=== PATIENT | female | born 1935 | race Caucasian/White ===

== ENCOUNTER 2020-03-20 12:44 | Emergency (ER) | payer BC, MEDICARE ==
[~2020-03-20] VITALS: Ht 165.1 cm; Wt 81.4 kg
[~2020-03-20 12:44] MED LIST: AMIT-189 PO; LEVO25TA2 PO; LIDOcaine 1% W/epiNEPHrine 1:200,000 10ml vial ONE; METF500T PO; POTA10CA44 PO; ROSU10TA2 PO
[2020-03-20] MEDS ORDERED: ibuprofen tablet 400 MG TABLET PO ONE (13:50)
[2020-03-20] MEDS ORDERED: bacitracin 15gm ointment TP ONE (14:25)
[2020-03-20 14:51] VITALS: BP 146/75
== END 2020-03-20 14:54 | disposition home or self-care (01) ==
LOC: ER 12:44
DX: S61.412A Laceration without foreign body of left hand, initial encounter (principal); S00.03XA Contusion of scalp, initial encounter; G43.909 Migraine, unspecified, not intractable, without status migrainosus; E11.9 Type 2 diabetes mellitus without complications; Z88.0 Allergy status to penicillin; Z87.440 Personal history of urinary (tract) infections; Z88.2 Allergy status to sulfonamides; Z88.5 Allergy status to narcotic agent; Z79.899 Other long term (current) drug therapy; W18.39XA Other fall on same level, initial encounter; Y93.01 Activity, walking, marching and hiking; Y92.89 Other specified places as the place of occurrence of the external cause; Y99.8 Other external cause status
CPT/HCPCS: 12002; 70450; 70486; 72125; 93005; 99285

== ENCOUNTER 2021-02-13 16:22 | Emergency (ER) | payer MEDICARE ==
[~2021-02-13] VITALS: Ht 167.6 cm; Wt 76.8 kg
[~2021-02-13 16:22] MED LIST changes: -LIDOcaine 1% W/epiNEPHrine 1:200,000 10ml vial ONE
[2021-02-13] MEDS ORDERED: bacitracin 15gm ointment TP ONE ×2 (17:15→20:10)
[2021-02-13] MEDS ORDERED: aspirin 81mg tab.chew PO ONE (17:15)
[2021-02-13] MEDS ORDERED: TETanus/Pertussis (Acell)/Diphther VAC/PF (Tdap-Adult) 0.5ml syringe IMVAC ONE (17:15)
[2021-02-13 18:12] LABS: BASOPHILS % (AUTO) 0.4 % (0-1); EOSINOPHILS # (AUTO) 0.3 X10'3 (0-0.9); EOSINOPHILS % (AUTO) 2.7 % (0-6); HEMATOCRIT 42.3 % (35.0-45.0); HEMOGLOBIN 14.2 g/dl (12.0-16.0); LYMPHOCYTES # (AUTO) 2.1 X10'3 (1.1-4.8); LYMPHOCYTES % (AUTO) 19.7 % (21-51); MEAN CORPUSCULAR HEMOGLOBIN 29.8 PG (27.0-31.0); MEAN CORPUSCULAR HGB CONC 33.6 g/dL (33.0-36.5); MEAN CORPUSCULAR VOLUME 88.7 FL (78-98); MEAN PLATELET VOLUME 8.2 FL (7.4-10.4); MONOCYTES # (AUTO) 1.1 X10'3 (0-0.9); MONOCYTES % (AUTO) 10.2 % (2-12); NEUTROPHILS # (AUTO) 7.3 X10'3 (1.8-7.7); PLATELET COUNT 352 X10'3 (140-440); RED BLOOD COUNT 4.76 X10'6 (4.20-5.60); WHITE BLOOD COUNT 10.8 X10'3 (4.5-11.0)
[2021-02-13 18:31] LABS: ALANINE AMINOTRANSFERASE 27 U/L (12-78); ALBUMIN 3.2 G/DL (3.4-5.0); ALBUMIN/GLOBULIN RATIO 0.9 (1.1-1.5); ALKALINE PHOSPHATASE 86 IU/L (46-116); ANION GAP 10 (8-16); ASPARTATE AMINO TRANSFERASE 23 U/L (10-37); BILIRUBIN,TOTAL 0.3 MG/DL (0.1-1.0); BLOOD UREA NITROGEN 13 MG/DL (7-18); BUN/CREATININE RATIO 11.8 (6.6-38.0); CALCIUM 8.4 MG/DL (8.5-10.1); CHLORIDE 105 MMOL/L (99-107); GLUCOSE 145 MG/DL (70-104); POTASSIUM 3.4 MMOL/L (3.5-5.1); SODIUM 141 MMOL/L (135-145); TOTAL PROTEIN 6.9 G/DL (6.4-8.2); eGFR 47 ML/MIN
[2021-02-13] MEDS ORDERED: LIDOcaine 1% W/epiNEPHrine 1:200,000 10ml vial IJ ONE (20:10)
[2021-02-13] MEDS ORDERED: potassium Cl 20 mEq SR tablet PO ONE (21:20)
[2021-02-13] MEDS ORDERED: CEPH250T PO (21:26)
--- NOTE | 2021-02-13 21:51 | NUR ---
per MELIDA Schilling, no urine needed at this time, Pt discharge
[2021-02-13 21:52] VITALS: BP 148/73
== END 2021-02-13 21:56 | disposition home or self-care (01) ==
LOC: ER 16:23
DX: S22.030A Wedge compression fracture of third thoracic vertebra, initial encounter for closed fracture (principal); S61.216A Laceration without foreign body of right little finger without damage to nail, initial encounter; F07.81 Postconcussional syndrome; G43.909 Migraine, unspecified, not intractable, without status migrainosus; E11.9 Type 2 diabetes mellitus without complications; Z87.440 Personal history of urinary (tract) infections; Z88.0 Allergy status to penicillin; Z88.2 Allergy status to sulfonamides; Z88.5 Allergy status to narcotic agent; Z79.2 Long term (current) use of antibiotics; Z79.899 Other long term (current) drug therapy; W19.XXXA Unspecified fall, initial encounter; Y93.89 Activity, other specified; Y92.89 Other specified places as the place of occurrence of the external cause; Y99.8 Other external cause status
CPT/HCPCS: 12002; 36415; 70450; 71045; 72125; 80053; 83735; 83880; 84443; 84484; 85025; 90715; 93005; 99285

== ENCOUNTER 2022-07-30 15:06 | Inpatient (IN) | payer MEDICARE ==
[~2022-07-30] VITALS: Ht 167.6 cm; Wt 75.0 kg
[~2022-07-30 15:06] MED LIST changes: -AMIT-189 PO; +AMIT50TA15 PO; -POTA10CA44 PO; +POTA10CA45 PO
[2022-07-30] MEDS ORDERED: proCHLORperazine 10 MG/2 ml inj IV ONE (15:45)
[2022-07-30] MEDS ORDERED: famotidine/PF 10 mg/ml inj IV ONE (15:45)
[2022-07-30 16:16] LABS: CLARITY,URINE CLOUDY (Clear); COLOR,URINE STRAW (Yellow); GLUCOSE, URINE NEGATIVE (Neg); KETONES,URINE TRACE mg/dl (Neg); LEUKOCYTE ESTERASE ,URINE NEGATIVE (Neg); NITRITES, URINE NEGATIVE (Neg); OCCULT BLOOD,URINE NEGATIVE (Neg); PROTEIN,URINE NEGATIVE (Neg); UROBILINOGEN,URINE 0.2 E.U/dL (0.2-1.0)
[2022-07-30 16:16] LABS: BASOPHILS % (AUTO) 0.4 % (0-1); EOSINOPHILS # (AUTO) 0.3 X10'3 (0-0.9); EOSINOPHILS % (AUTO) 2.4 % (0-6); HEMATOCRIT 40.9 % (35.0-45.0); HEMOGLOBIN 13.6 g/dl (12.0-16.0); LYMPHOCYTES # (AUTO) 1.2 X10'3 (1.1-4.8); LYMPHOCYTES % (AUTO) 9.6 % (21-51); MEAN CORPUSCULAR HEMOGLOBIN 29.2 PG (27.0-31.0); MEAN CORPUSCULAR HGB CONC 33.2 g/dL (33.0-36.5); MEAN PLATELET VOLUME 8.1 FL (7.4-10.4); MONOCYTES # (AUTO) 0.9 X10'3 (0-0.9); MONOCYTES % (AUTO) 6.8 % (2-12); NEUTROPHILS # (AUTO) 10.5 X10'3 (1.8-7.7); NEUTROPHILS % (AUTO) 80.8 % (42-75); PLATELET COUNT 231 X10'3 (140-440); RED BLOOD COUNT 4.64 X10'6 (4.20-5.60); RED CELL DISTRIBUTION WIDTH 13.3 % (11.5-14.5); WHITE BLOOD COUNT 12.9 X10'3 (4.5-11.0)
[2022-07-30 16:17] LABS: UA COLLECTION TYPE CLN CATCH MIDSTREAM
[2022-07-30] MEDS ORDERED: LIDOcaine 2% 10ml TOPICAL JELLY (Urojet) TP ONE (16:25)
[2022-07-30 16:26] LABS: ALANINE AMINOTRANSFERASE 21 U/L (12-78); ALBUMIN 3.2 G/DL (3.4-5.0); ALKALINE PHOSPHATASE 69 IU/L (46-116); ANION GAP 6 (8-16); ASPARTATE AMINO TRANSFERASE 31 U/L (10-37); BILIRUBIN,TOTAL 0.6 MG/DL (0.1-1.0); BLOOD UREA NITROGEN 11 MG/DL (7-18); BUN/CREATININE RATIO 17.7 (6.6-38.0); CALCIUM 8.8 MG/DL (8.5-10.1); CHLORIDE 100 MMOL/L (99-107); CREATININE 0.62 MG/DL (0.40-0.90); GLUCOSE 157 MG/DL (70-104); POTASSIUM 3.3 MMOL/L (3.5-5.1); SODIUM 135 MMOL/L (135-145); TOTAL CARBON DIOXIDE 28.8 MMOL/L (24-32); TOTAL PROTEIN 6.4 G/DL (6.4-8.2); eGFR > 90 ML/MIN
[2022-07-30 16:28] LABS: AMORPHOUS PHOSPHATES 3+; MUCUS STRANDS NONE SEEN /LPF (Neg); RBC,URINE 0-2 /HPF (0-2); SQUAMOUS EPITHELIAL CELL,UR FEW /LPF (FEW); TRANSITIONAL EPI CELLS,URINE FEW /HPF; WBC,URINE 0-4 /HPF (0-4)
[2022-07-30 16:29] LABS: BACTERIA,URINE 1+ /HPF (Neg)
[2022-07-30] MEDS ORDERED: magnesium 4gm in 100ml NS 100 ML IV PRN (17:35)
[2022-07-30] MEDS ORDERED: magnesium Cl slow-release 64mg tablet PO PRN (17:35)
[2022-07-30] MEDS: normal saline 1000ml 1,000 ML IV SCH (17:35)
[2022-07-30] MEDS ORDERED: potassium Cl 20 mEq SR tablet PO PRN (17:35)
[2022-07-30] MEDS ORDERED: potassium Cl 40MEQ/1/2NS 520ml 520 ML IV PRN (17:35)
[2022-07-30] MEDS ORDERED: ondansetron/PF 4mg/2ml inj IV PRN (17:35)
[2022-07-30] MEDS ORDERED: morphine 2 MG/ML inj. syringe IV PRN (17:35)
[2022-07-30] MEDS ORDERED: acetaminophen 325mg tablet PO PRN (17:35)
[2022-07-30] MEDS: K and/or MAG REPLACEMENT MC SCH (19:07)
[2022-07-30] MEDS: potassium Cl 20 mEq SR tablet PO PRN (19:14)
[2022-07-30 22:00] VITALS: BP 143/77
[2022-07-30] MEDS ORDERED: SOTA80TA73 PO (22:25)
[2022-07-31] VITALS (19 sets, daily range): BP systolic 101–164; BP diastolic 46–77
[2022-07-31] MEDS ORDERED: fentaNYL 12 MCG/hour patch.TD72 TD SCH (00:05)
[2022-07-31] MEDS ORDERED: acetaminophen 1,000mg/100ml IV 100 ML IV ONE (00:05)
[2022-07-31] MEDS: potassium Cl 20 mEq SR tablet PO PRN (00:22)
[2022-07-31] MEDS: normal saline 1000ml 1,000 ML IV SCH ×2 (06:38→21:15)
[2022-07-31 06:54] LABS: BASOPHILS % (AUTO) 0.3 % (0-1); EOSINOPHILS # (AUTO) 0.2 X10'3 (0-0.9); EOSINOPHILS % (AUTO) 2.3 % (0-6); HEMATOCRIT 39.9 % (35.0-45.0); HEMOGLOBIN 13.6 g/dl (12.0-16.0); LYMPHOCYTES # (AUTO) 1.7 X10'3 (1.1-4.8); LYMPHOCYTES % (AUTO) 16.7 % (21-51); MEAN CORPUSCULAR VOLUME 88.4 FL (78-98); MEAN PLATELET VOLUME 7.9 FL (7.4-10.4); MONOCYTES % (AUTO) 9.8 % (2-12); NEUTROPHILS # (AUTO) 7.2 X10'3 (1.8-7.7); NEUTROPHILS % (AUTO) 70.9 % (42-75); PLATELET COUNT 203 X10'3 (140-440); RED BLOOD COUNT 4.51 X10'6 (4.20-5.60); RED CELL DISTRIBUTION WIDTH 13.2 % (11.5-14.5); WHITE BLOOD COUNT 10.2 X10'3 (4.5-11.0)
[2022-07-31 07:32] LABS: HEMOGLOBIN A1C 6.1 % (4.5-6.2)
[2022-07-31 07:41] LABS: ALANINE AMINOTRANSFERASE 20 U/L (12-78); ALBUMIN 2.9 G/DL (3.4-5.0); ALKALINE PHOSPHATASE 62 IU/L (46-116); ANION GAP 5 (8-16); ASPARTATE AMINO TRANSFERASE 32 U/L (10-37); BILIRUBIN,TOTAL 0.9 MG/DL (0.1-1.0); BLOOD UREA NITROGEN 9 MG/DL (7-18); CALCIUM 8.4 MG/DL (8.5-10.1); CHLORIDE 99 MMOL/L (99-107); CREATININE 0.69 MG/DL (0.40-0.90); GLUCOSE 125 MG/DL (70-104); MAGNESIUM 1.7 MG/DL (1.5-2.4); POTASSIUM 4.2 MMOL/L (3.5-5.1); SODIUM 134 MMOL/L (135-145); TOTAL CARBON DIOXIDE 29.6 MMOL/L (24-32); TOTAL PROTEIN 5.9 G/DL (6.4-8.2); eGFR 81 ML/MIN
[2022-07-31] MEDS: K and/or MAG REPLACEMENT MC SCH ×2 (08:00→19:18)
[2022-07-31] MEDS: ROSUVASTATIN CALCIUM 5 MG TABLET PO SCH (08:35)
[2022-07-31] MEDS: levoTHYROXINE 25mcg tablet PO SCH (08:35)
[2022-07-31] MEDS ORDERED: propofol inj 20 ML IV ONE (12:09)
[2022-07-31] MEDS ORDERED: fentaNYL /PF 50mcg/ml 5ml ampule ONE (12:09)
[2022-07-31] MEDS ORDERED: SOTA80TA26 PO (12:35)
[2022-07-31] MEDS ORDERED: vancomycin 1,000mg inj ONE (12:47)
[2022-07-31] MEDS ORDERED: ROPIVAcaine 0.5% (5mg/ml) 30ml vial IJ ONE (12:50)
[2022-07-31] MEDS ORDERED: ringers solution, lacted 1,000 ML IV SCH (13:40)
[2022-07-31] MEDS ORDERED: ondansetron/PF 4mg/2ml inj IV PRN (13:40)
[2022-07-31] MEDS ORDERED: proCHLORperazine 10 MG/2 ml inj IV PRN (13:40)
[2022-07-31] MEDS ORDERED: morphine 4 MG/ML inj SYRINge IV PRN (13:40)
[2022-07-31] MEDS ORDERED: morphine 2 MG/ML inj. syringe IV PRN (13:40)
[2022-07-31] MEDS ORDERED: meperidine/PF 25mg/ml syringe IV PRN ×3 (13:40)
[2022-07-31] MEDS: heparin, porcine 5000 units/ml vial SQ SCH (21:14)
[2022-07-31] MEDS: sotalol 80mg tablet PO SCH (21:15)
[2022-07-31] MEDS: amitriptyline 25mg tablet PO SCH (21:15)
[2022-08-01 02:00] VITALS: BP 115/55
[2022-08-01 05:00] LABS: BASOPHILS % (AUTO) 0.3 % (0-1); EOSINOPHILS % (AUTO) 0.2 % (0-6); HEMATOCRIT 31.2 % (35.0-45.0); HEMOGLOBIN 10.6 g/dl (12.0-16.0); LYMPHOCYTES # (AUTO) 1.4 X10'3 (1.1-4.8); LYMPHOCYTES % (AUTO) 15.1 % (21-51); MEAN CORPUSCULAR HEMOGLOBIN 30.2 PG (27.0-31.0); MEAN CORPUSCULAR HGB CONC 33.9 g/dL (33.0-36.5); MEAN CORPUSCULAR VOLUME 89.1 FL (78-98); MONOCYTES # (AUTO) 1.2 X10'3 (0-0.9); MONOCYTES % (AUTO) 13.5 % (2-12); NEUTROPHILS # (AUTO) 6.6 X10'3 (1.8-7.7); NEUTROPHILS % (AUTO) 70.9 % (42-75); PLATELET COUNT 163 X10'3 (140-440); RED CELL DISTRIBUTION WIDTH 13.2 % (11.5-14.5); WHITE BLOOD COUNT 9.3 X10'3 (4.5-11.0)
[2022-08-01 05:11] LABS: ALANINE AMINOTRANSFERASE 15 U/L (12-78); ALBUMIN 2.3 G/DL (3.4-5.0); ALBUMIN/GLOBULIN RATIO 0.8 (1.1-1.5); ALKALINE PHOSPHATASE 51 IU/L (46-116); ANION GAP 4 (8-16); ASPARTATE AMINO TRANSFERASE 29 U/L (10-37); BILIRUBIN,TOTAL 0.6 MG/DL (0.1-1.0); BLOOD UREA NITROGEN 13 MG/DL (7-18); BUN/CREATININE RATIO 18.1 (6.6-38.0); CALCIUM 7.6 MG/DL (8.5-10.1); CHLORIDE 103 MMOL/L (99-107); CREATININE 0.72 MG/DL (0.40-0.90); GLUCOSE 149 MG/DL (70-104); MAGNESIUM 1.6 MG/DL (1.5-2.4); POTASSIUM 3.9 MMOL/L (3.5-5.1); SODIUM 135 MMOL/L (135-145); TOTAL CARBON DIOXIDE 27.8 MMOL/L (24-32); TOTAL PROTEIN 5.1 G/DL (6.4-8.2); eGFR 77 ML/MIN
[2022-08-01 06:00] VITALS: BP 130/65
[2022-08-01] MEDS: levoTHYROXINE 25mcg tablet PO SCH (07:21)
[2022-08-01] MEDS: heparin, porcine 5000 units/ml vial SQ SCH ×2 (07:21→20:41)
[2022-08-01] MEDS: K and/or MAG REPLACEMENT MC SCH ×2 (07:22→20:34)
[2022-08-01] MEDS: sotalol 80mg tablet PO SCH ×2 (07:22→20:39)
[2022-08-01] MEDS: ROSUVASTATIN CALCIUM 5 MG TABLET PO SCH (08:00)
[2022-08-01] MEDS: normal saline 1000ml 1,000 ML IV SCH ×2 (08:14→20:39)
[2022-08-01] MEDS ORDERED: ondansetron/PF 4mg/2ml inj IV PRN (08:40)
[2022-08-01] MEDS ORDERED: HYDROcodone/acetaminophen 5mg/325mg tablet PO PRN (08:40)
[2022-08-01] MEDS ORDERED: vancomycin/NS 1 GM ADD-VANTAGE 250 ML IV ONE (13:00)
[2022-08-01] MEDS ORDERED: ondansetron 4mg rapidly disintigrating tab PO PRN (14:10)
[2022-08-01] MEDS: traMADol 50MG tablet PO PRN (15:54)
[2022-08-01 18:00] VITALS: BP 114/58
[2022-08-01] MEDS: amitriptyline 25mg tablet PO SCH (20:39)
[2022-08-01 22:00] VITALS: BP 113/37
[2022-08-02] MEDS: traMADol 50MG tablet PO PRN ×2 (05:39→20:14)
[2022-08-02 06:00] VITALS: BP 132/42
[2022-08-02 06:45] LABS: HEMOGLOBIN 8.6 g/dl (12.0-16.0); PLATELET COUNT 150 X10'3 (140-440)
[2022-08-02 06:49] LABS: BASOPHILS % (AUTO) 0.4 % (0-1); EOSINOPHILS # (AUTO) 0.6 X10'3 (0-0.9); EOSINOPHILS % (AUTO) 6.9 % (0-6); HEMATOCRIT 25.4 % (35.0-45.0); LYMPHOCYTES # (AUTO) 1.9 X10'3 (1.1-4.8); LYMPHOCYTES % (AUTO) 21.5 % (21-51); MEAN CORPUSCULAR HEMOGLOBIN 30.2 PG (27.0-31.0); MEAN PLATELET VOLUME 8.6 FL (7.4-10.4); MONOCYTES # (AUTO) 1.3 X10'3 (0-0.9); MONOCYTES % (AUTO) 14.7 % (2-12); NEUTROPHILS # (AUTO) 5.1 X10'3 (1.8-7.7); NEUTROPHILS % (AUTO) 56.5 % (42-75); RED BLOOD COUNT 2.85 X10'6 (4.20-5.60); RED CELL DISTRIBUTION WIDTH 13.2 % (11.5-14.5)
[2022-08-02 07:01] LABS: ALANINE AMINOTRANSFERASE 17 U/L (12-78); ALBUMIN 2.1 G/DL (3.4-5.0); ALBUMIN/GLOBULIN RATIO 0.8 (1.1-1.5); ALKALINE PHOSPHATASE 42 IU/L (46-116); ANION GAP 6 (8-16); ASPARTATE AMINO TRANSFERASE 20 U/L (10-37); BILIRUBIN,TOTAL 0.4 MG/DL (0.1-1.0); BLOOD UREA NITROGEN 19 MG/DL (7-18); BUN/CREATININE RATIO 30.2 (6.6-38.0); CALCIUM 7.4 MG/DL (8.5-10.1); CHLORIDE 104 MMOL/L (99-107); CREATININE 0.63 MG/DL (0.40-0.90); GLUCOSE 139 MG/DL (70-104); MAGNESIUM 1.7 MG/DL (1.5-2.4); POTASSIUM 3.8 MMOL/L (3.5-5.1); SODIUM 135 MMOL/L (135-145); TOTAL CARBON DIOXIDE 25.2 MMOL/L (24-32); TOTAL PROTEIN 4.8 G/DL (6.4-8.2); eGFR 90 ML/MIN
[2022-08-02] MEDS: K and/or MAG REPLACEMENT MC SCH ×2 (08:00→20:00)
[2022-08-02] MEDS: levoTHYROXINE 25mcg tablet PO SCH (08:01)
[2022-08-02] MEDS: sotalol 80mg tablet PO SCH ×2 (08:01→20:13)
[2022-08-02] MEDS: ROSUVASTATIN CALCIUM 5 MG TABLET PO SCH (08:01)
[2022-08-02] MEDS: heparin, porcine 5000 units/ml vial SQ SCH ×2 (08:02→20:14)
[2022-08-02] MEDS: normal saline 1000ml 1,000 ML IV SCH ×2 (08:05→20:35)
[2022-08-02 18:00] VITALS: BP 116/86
[2022-08-02] MEDS: amitriptyline 25mg tablet PO SCH (20:13)
[2022-08-02 22:00] VITALS: BP 119/59
[2022-08-03] MEDS ORDERED: magnesium hydroxide 30ml (MOM) UD suspension PO ONE (01:00)
[2022-08-03] MEDS ORDERED: magnesium hydroxide 30ml (MOM) UD suspension PO PRN (01:20)
[2022-08-03] MEDS: normal saline 1000ml 1,000 ML IV SCH ×2 (01:50→22:51)
[2022-08-03 06:00] VITALS: BP 121/61
[2022-08-03] MEDS: levoTHYROXINE 25mcg tablet PO SCH (07:19)
[2022-08-03] MEDS: sotalol 80mg tablet PO SCH ×2 (07:20→21:18)
[2022-08-03] MEDS: heparin, porcine 5000 units/ml vial SQ SCH ×2 (07:38→21:20)
[2022-08-03] MEDS: ROSUVASTATIN CALCIUM 5 MG TABLET PO SCH (07:38)
[2022-08-03 07:47] LABS: EOSINOPHILS # (AUTO) 0.6 X10'3 (0-0.9); HEMATOCRIT 23.7 % (35.0-45.0); MEAN CORPUSCULAR HEMOGLOBIN 30.1 PG (27.0-31.0); MEAN CORPUSCULAR HGB CONC 33.7 g/dL (33.0-36.5)
[2022-08-03 07:50] LABS: BASOPHILS % (AUTO) 0.3 % (0-1); EOSINOPHILS % (AUTO) 6.5 % (0-6); LYMPHOCYTES # (AUTO) 1.8 X10'3 (1.1-4.8); LYMPHOCYTES % (AUTO) 21.5 % (21-51); MEAN CORPUSCULAR VOLUME 89.4 FL (78-98); MEAN PLATELET VOLUME 8.4 FL (7.4-10.4); MONOCYTES # (AUTO) 1.1 X10'3 (0-0.9); NEUTROPHILS % (AUTO) 58.7 % (42-75); PLATELET COUNT 144 X10'3 (140-440); RED BLOOD COUNT 2.65 X10'6 (4.20-5.60); RED CELL DISTRIBUTION WIDTH 12.9 % (11.5-14.5); WHITE BLOOD COUNT 8.6 X10'3 (4.5-11.0)
[2022-08-03] MEDS: K and/or MAG REPLACEMENT MC SCH ×2 (08:00→20:00)
[2022-08-03 08:24] LABS: ALANINE AMINOTRANSFERASE 10 U/L (12-78); ALBUMIN/GLOBULIN RATIO 0.7 (1.1-1.5); ALKALINE PHOSPHATASE 47 IU/L (46-116); ANION GAP 4 (8-16); ASPARTATE AMINO TRANSFERASE 21 U/L (10-37); BILIRUBIN,TOTAL 0.5 MG/DL (0.1-1.0); BLOOD UREA NITROGEN 14 MG/DL (7-18); BUN/CREATININE RATIO 26.4 (6.6-38.0); CALCIUM 7.5 MG/DL (8.5-10.1); CHLORIDE 104 MMOL/L (99-107); CREATININE 0.53 MG/DL (0.40-0.90); GLUCOSE 131 MG/DL (70-104); POTASSIUM 3.6 MMOL/L (3.5-5.1); SODIUM 134 MMOL/L (135-145); TOTAL CARBON DIOXIDE 25.9 MMOL/L (24-32); TOTAL PROTEIN 4.8 G/DL (6.4-8.2); eGFR > 90 ML/MIN
[2022-08-03 10:50] VITALS: BP 118/48
[2022-08-03 18:00] VITALS: BP 129/48
[2022-08-03 22:00] VITALS: BP 135/45
[2022-08-04 05:56] LABS: BASOPHILS % (AUTO) 0.2 % (0-1); EOSINOPHILS # (AUTO) 0.6 X10'3 (0-0.9); EOSINOPHILS % (AUTO) 6.5 % (0-6); HEMATOCRIT 24.4 % (35.0-45.0); HEMOGLOBIN 8.4 g/dl (12.0-16.0); LYMPHOCYTES % (AUTO) 21.5 % (21-51); MEAN CORPUSCULAR HEMOGLOBIN 30.3 PG (27.0-31.0); MEAN CORPUSCULAR HGB CONC 34.6 g/dL (33.0-36.5); MEAN CORPUSCULAR VOLUME 87.5 FL (78-98); MEAN PLATELET VOLUME 8.2 FL (7.4-10.4); MONOCYTES # (AUTO) 1.2 X10'3 (0-0.9); MONOCYTES % (AUTO) 12.6 % (2-12); NEUTROPHILS # (AUTO) 5.4 X10'3 (1.8-7.7); NEUTROPHILS % (AUTO) 59.2 % (42-75); PLATELET COUNT 164 X10'3 (140-440); RED BLOOD COUNT 2.79 X10'6 (4.20-5.60); WHITE BLOOD COUNT 9.2 X10'3 (4.5-11.0)
[2022-08-04 06:00] VITALS: BP 150/58
[2022-08-04 06:35] LABS: ALANINE AMINOTRANSFERASE 17 U/L (12-78); ALBUMIN 2.1 G/DL (3.4-5.0); ALBUMIN/GLOBULIN RATIO 0.7 (1.1-1.5); ALKALINE PHOSPHATASE 51 IU/L (46-116); ANION GAP 5 (8-16); ASPARTATE AMINO TRANSFERASE 20 U/L (10-37); BILIRUBIN,TOTAL 0.7 MG/DL (0.1-1.0); BLOOD UREA NITROGEN 11 MG/DL (7-18); CALCIUM 7.6 MG/DL (8.5-10.1); CHLORIDE 99 MMOL/L (99-107); CREATININE 0.55 MG/DL (0.40-0.90); GLUCOSE 121 MG/DL (70-104); POTASSIUM 3.3 MMOL/L (3.5-5.1); SODIUM 130 MMOL/L (135-145); TOTAL CARBON DIOXIDE 25.9 MMOL/L (24-32); eGFR > 90 ML/MIN
[2022-08-04] MEDS: levoTHYROXINE 25mcg tablet PO SCH (07:30)
[2022-08-04] MEDS: sotalol 80mg tablet PO SCH ×2 (07:30→21:20)
[2022-08-04] MEDS: ROSUVASTATIN CALCIUM 5 MG TABLET PO SCH (07:30)
[2022-08-04] MEDS: heparin, porcine 5000 units/ml vial SQ SCH ×2 (07:31→21:21)
[2022-08-04] MEDS: K and/or MAG REPLACEMENT MC SCH ×2 (08:00→20:00)
[2022-08-04 11:18] VITALS: BP 133/80
[2022-08-04] MEDS ORDERED: magnesium 4gm in 100ml NS 100 ML IV PRN (11:30)
[2022-08-04] MEDS ORDERED: potassium Cl 20 mEq SR tablet PO PRN (11:30)
[2022-08-04] MEDS ORDERED: magnesium Cl slow-release 64mg tablet PO PRN (11:30)
[2022-08-04] MEDS ORDERED: potassium Cl 40MEQ/1/2NS 520ml 520 ML IV PRN (11:30)
[2022-08-04] MEDS ORDERED: magnesium hydroxide 30ml (MOM) UD suspension PO PRN (11:35)
[2022-08-04 12:17] LABS: MAGNESIUM 1.6 MG/DL (1.5-2.4)
[2022-08-04] MEDS: potassium Cl 20 mEq SR tablet PO PRN ×3 (12:20→21:21)
[2022-08-04] MEDS: normal saline 1000ml 1,000 ML IV SCH (13:09)
[2022-08-04 18:15] VITALS: BP 153/54
[2022-08-04 22:00] VITALS: BP 130/62
[2022-08-05 06:00] VITALS: BP 120/65
[2022-08-05 06:50] LABS: MAGNESIUM 1.7 MG/DL (1.5-2.4); POTASSIUM 3.5 MMOL/L (3.5-5.1)
[2022-08-05] MEDS: sotalol 80mg tablet PO SCH ×2 (07:25→20:02)
[2022-08-05] MEDS: heparin, porcine 5000 units/ml vial SQ SCH ×2 (07:26→20:02)
[2022-08-05] MEDS: levoTHYROXINE 25mcg tablet PO SCH (07:26)
[2022-08-05] MEDS: ROSUVASTATIN CALCIUM 5 MG TABLET PO SCH (07:28)
[2022-08-05] MEDS: K and/or MAG REPLACEMENT MC SCH ×2 (07:58→19:34)
[2022-08-05 10:00] VITALS: BP 120/65
[2022-08-05] MEDS ORDERED: LORazepam 2 mg/ml vial IV ONE (11:02)
[2022-08-05] MEDS: normal saline 1000ml 1,000 ML IV SCH (15:23)
[2022-08-05 18:00] VITALS: BP 132/62
[2022-08-05] MEDS: ferrous gluconate 324mg tablet PO SCH (20:02)
[2022-08-05 20:45] LABS: BASOPHILS # (AUTO) 0.1 X10'3 (0-0.2); BASOPHILS % (AUTO) 0.6 % (0-1); EOSINOPHILS # (AUTO) 0.3 X10'3 (0-0.9); HEMATOCRIT 26.7 % (35.0-45.0); HEMOGLOBIN 9.1 g/dl (12.0-16.0); LYMPHOCYTES # (AUTO) 1.7 X10'3 (1.1-4.8); LYMPHOCYTES % (AUTO) 17.6 % (21-51); MEAN CORPUSCULAR HEMOGLOBIN 30.2 PG (27.0-31.0); MEAN CORPUSCULAR HGB CONC 34.2 g/dL (33.0-36.5); MEAN CORPUSCULAR VOLUME 88.3 FL (78-98); MEAN PLATELET VOLUME 8.3 FL (7.4-10.4); MONOCYTES # (AUTO) 1.2 X10'3 (0-0.9); MONOCYTES % (AUTO) 12.5 % (2-12); NEUTROPHILS # (AUTO) 6.4 X10'3 (1.8-7.7); NEUTROPHILS % (AUTO) 66.3 % (42-75); PLATELET COUNT 223 X10'3 (140-440); RED BLOOD COUNT 3.02 X10'6 (4.20-5.60); WHITE BLOOD COUNT 9.6 X10'3 (4.5-11.0)
[2022-08-05 21:20] LABS: ALANINE AMINOTRANSFERASE 20 U/L (12-78); ALBUMIN 2.5 G/DL (3.4-5.0); ALBUMIN/GLOBULIN RATIO 0.8 (1.1-1.5); ALKALINE PHOSPHATASE 54 IU/L (46-116); ANION GAP 7 (8-16); ASPARTATE AMINO TRANSFERASE 27 U/L (10-37); BILIRUBIN,TOTAL 1.2 MG/DL (0.1-1.0); BLOOD UREA NITROGEN 10 MG/DL (7-18); BUN/CREATININE RATIO 18.2 (6.6-38.0); CALCIUM 8.2 MG/DL (8.5-10.1); CHLORIDE 98 MMOL/L (99-107); CREATININE 0.55 MG/DL (0.40-0.90); GLUCOSE 130 MG/DL (70-104); POTASSIUM 3.2 MMOL/L (3.5-5.1); SODIUM 131 MMOL/L (135-145); TOTAL CARBON DIOXIDE 26.2 MMOL/L (24-32); TOTAL PROTEIN 5.6 G/DL (6.4-8.2); eGFR > 90 ML/MIN
[2022-08-05] MEDS: potassium Cl 20 mEq SR tablet PO PRN (21:44)
[2022-08-05 22:00] VITALS: BP 138/76
[2022-08-06] MEDS: potassium Cl 20 mEq SR tablet PO PRN ×2 (01:31→04:38)
[2022-08-06] MEDS: normal saline 1000ml 1,000 ML IV SCH (04:38)
[2022-08-06 06:22] LABS: MAGNESIUM 1.6 MG/DL (1.5-2.4); POTASSIUM 3.4 MMOL/L (3.5-5.1)
[2022-08-06 06:29] VITALS: BP 149/51
[2022-08-06] MEDS: sotalol 80mg tablet PO SCH (07:18)
[2022-08-06] MEDS: levoTHYROXINE 25mcg tablet PO SCH (07:19)
[2022-08-06] MEDS: ferrous gluconate 324mg tablet PO SCH (07:20)
[2022-08-06] MEDS: heparin, porcine 5000 units/ml vial SQ SCH (07:21)
[2022-08-06] MEDS: ROSUVASTATIN CALCIUM 5 MG TABLET PO SCH (07:23)
[2022-08-06] MEDS: K and/or MAG REPLACEMENT MC SCH (07:29)
[2022-08-06 10:34] VITALS: BP 142/74
== END 2022-08-06 12:22 | DRG 480 ==
LOC: ER 15:08 → ED HOLD 18:09 → SUR 3N 20:19
PROVIDERS: ADMIT Internal Medicine; ATTEND Family Medicine
PROC: 0QH606Z Insertion of Intramedullary Internal Fixation Device into Right Upper Femur, Open Approach (ICD-10-PCS; principal; 2022-07-31 12:07)
DX: S72.141A Displaced intertrochanteric fracture of right femur, initial encounter for closed fracture (principal); G92.9 Unspecified toxic encephalopathy; R44.3 Hallucinations, unspecified; Z20.822 Contact with and (suspected) exposure to COVID-19; E03.9 Hypothyroidism, unspecified; E11.9 Type 2 diabetes mellitus without complications; E78.5 Hyperlipidemia, unspecified; F03.90 Unspecified dementia, unspecified severity, without behavioral disturbance, psychotic disturbance, mood disturbance, and anxiety; W01.0XXA Fall on same level from slipping, tripping and stumbling without subsequent striking against object, initial encounter; I48.0 Paroxysmal atrial fibrillation; G43.909 Migraine, unspecified, not intractable, without status migrainosus; Y93.89 Activity, other specified; Y99.8 Other external cause status; Z88.0 Allergy status to penicillin; Z88.2 Allergy status to sulfonamides; Z88.5 Allergy status to narcotic agent; Z79.84 Long term (current) use of oral hypoglycemic drugs; Y92.098 Other place in other non-institutional residence as the place of occurrence of the external cause; Z87.440 Personal history of urinary (tract) infections; Z79.899 Other long term (current) drug therapy; Z79.890 Hormone replacement therapy
CPT/HCPCS: 36415; 70450; 70551; 71045; 73501; 73502; 76000; 80053; 81001; 82948; 83036; 83735; 84132; 84145; 84443; 85025; 85610; 86885; 86900; 86901; 87081; 87635; 87811; 93005; 97110; 97162; 97530; 97535; 99285; A4615; A5200; A6449; G0378; J0131; J0780; J1644; J2060; J2704; J2795; J3010; J3370; J3490; J7030